=== PATIENT | female | born 1980 | race Caucasian/White ===

== ENCOUNTER 2016-10-24 09:20 | Emergency (ER) | payer BC ==
[2016-10-24 09:38] VITALS: BP 120/67
--- NOTE | 2016-10-24 10:07 | UC ---
Abdominal Pain Female HPI - HPI Summary HPI Summary: 36 female with the acute onset of pelvic pain this AM 11/24 lasted 20 minutes nausea quickly resolved and now at a 1/10 no hx kidney stones or ovarian cysts - History of Current Complaint Chief Complaint: UCAbdominalPain Stated Complaint: LOWER ABD PAIN Time Seen by Provider: 10/24/16 09:39 Hx Obtained From: Patient Hx Last Menstrual Period: 10/12/16 ?: No Onset/Duration: Sudden Onset Timing: Constant Severity Initially: Severe Severity Currently: Mild Pain Intensity: 1 - 8/10 initially Pain Scale Used: 0-10 Numeric Location: Other - right pelvic Radiates: No Character: Cramping Aggravating Factor(s): Nothing Alleviating Factor(s): Spontaneous Resolution Associated Signs and Symptoms: Positive: Nausea Allergies/Adverse Reactions: Allergies Allergy/AdvReac Type Severity Reaction Status Date / Time No Known Allergies Allergy Verified 10/24/16 09:28 Home Medications: Home Medications Control 10/24/16 [History] PMH/Surg Hx/FS Hx/Imm Hx Previously Healthy: Yes - Surgical History Surgical History: None - Family History Known Family History: Positive: Hypertension, Other - mom LUPUS - Social History Alcohol Use: None Substance Use Type: None Smoking Status (MU): Never Smoked Tobacco - Immunization History Most Recent Influenza Vaccination: declined this season Most Recent Tetanus Shot: 03/2014 Most Recent Pneumonia Vaccination: never Review of Systems Constitutional: Negative Skin: Negative Eyes: Negative ENT: Negative Respiratory: Negative Cardiovascular: Negative Gastrointestinal: Abdominal Pain, Nausea Genitourinary: Negative Motor: Negative Neurovascular: Negative Musculoskeletal: Negative Neurological: Negative Psychological: Negative All Other Systems Reviewed And Are Negative: Yes Physical Exam Triage Information Reviewed: Yes Appearance: Well-Appearing, No Pain Distress, Well-Nourished Vital Signs: Initial Vital Signs Temp 98.5 F 10/24/16 09:31 Pulse 72 10/24/16 09:31 Resp 16 10/24/16 09:31 BP 120/67 10/24/16 09:31 Pulse Ox 100 10/24/16 09:31 Eye Exam: Normal ENT: Positive: Hearing grossly normal. Negative: Nasal congestion, Nasal drainage, Tonsillar exudate, Trismus Dental Exam: Normal Neck: Positive: Supple, Nontender, Enlarged Nodes @ - right occipital node Respiratory Exam: Normal Respiratory: Positive: Lungs clear, Normal breath sounds, No respiratory distress, No accessory muscle use Cardiovascular: Positive: RRR, No Murmur Abdomen Description: Positive: Nontender, No Organomegaly, Soft, Other: - ext gent- normal, vagina- thin whitish d/c, cx - no CMT/some inflamation, uterus- normal size and nontender, adenexa- no tender, no mass. Negative: CVA Tenderness (R), CVA Tenderness (L) Musculoskeletal: Positive: ROM Intact, No Edema Neurological: Positive: Alert Psychological Exam: Normal Skin Exam: Normal Abd Pain Female Course/Dx - Differential Dx/Diagnosis Provider Diagnoses: right pelvic pain- suspect Hali Discharge - Discharge Plan Condition: Stable Disposition: HOME Patient Education Materials: Tita (ED), Pelvic Pain in Women (ED) Referrals: No Primary Care Phys,NOPCP [Primary Care Provider] - Additional Instructions: advil or aleve if you need it call me if new symptoms develop ([phone]). I will be here until 2:30 I suspect david recheck tomorrow if not completely better
== END 2016-10-24 10:22 | disposition home or self-care (01) ==
LOC: UCEAST 09:20
DX: R10.2 Pelvic and perineal pain (principal); R11.0 Nausea; Z32.02 Encounter for pregnancy test, result negative
CPT/HCPCS: 81003; 84702; 87480; 87491; 87510; 87591; 87661; 99211; G0463

== ENCOUNTER 2017-06-18 09:27 | Emergency (ER) | payer BC ==
[2017-06-18 09:38] VITALS: BP 123/69
--- NOTE | 2017-06-18 09:42 | UC ---
Throat Pain/Nasal [place] HPI - HPI Summary HPI Summary: Pt presents with sore throat, headache, and tender swollen lymphnodes since yesterday. 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 She has not taken anything OTC for her symptoms. She denies fever, chills, cough, SOB, chest pain, abdominal pain, n/v/d/c. - History of Current Complaint Chief Complaint: UCRespiratory Stated Complaint: SORE THROAT Time Seen by Provider: 06/18/17 09:37 Hx Obtained From: Patient Hx Last Menstrual Period: current Onset/Duration: Sudden Onset Severity: Moderate Pain Intensity: 4 Pain Scale Used: 0-10 Numeric - Allergies/Home Medications Allergies/Adverse Reactions: Allergies Allergy/AdvReac Type Severity Reaction Status Date / Time No Known Allergies Allergy Verified 06/18/17 09:38 Home Medications: Home Medications Ibuprofen TAB* [Motrin TAB* 600 MG] 200 mg PO Q6H PRN 06/18/17 [History Confirmed 06/18/17] PMH/Surg Hx/FS Hx/Imm Hx Previously Healthy: Yes - Surgical History Surgical History: None - Family History Known Family History: Positive: Hypertension, Other - mom LUPUS - Social History Occupation: Employed Full-time Lives: With Family Alcohol Use: Occasionally Alcohol Amount: couple of glasses of wine Substance Use Type: None Smoking Status (MU): Never Smoked Tobacco - Immunization History Most Recent Influenza Vaccination: declined this season Most Recent Tetanus Shot: 03/2014 Most Recent Pneumonia Vaccination: never Review of Systems Constitutional: Negative Skin: Negative Eyes: Negative ENT: Sore Throat Respiratory: Negative Cardiovascular: Negative Musculoskeletal: Negative Neurological: Headache Psychological: Negative All Other Systems Reviewed And Are Negative: Yes Physical Exam - Summary Physical Exam Summary: GENERAL: NAD. WDWN. No pain distress. SKIN: No rashes, sores, ulcers, masses, lesions. No clubbing or cyanosis. HEENT: Head: AT/NC Eyes: Conjunctiva clear without inflammation or discharge. Ears: Hearing grossly normal. TMs intact, no bulging, erythema, or edema. Nose: Nasal mucosa pink and moist. NTTP maxillary and frontal sinus. Throat: Posterior oropharynx moderate erythema and 2+ tonsillar enlargement. No exudates. Uvula midline. No hoarse voice or muffled voice. NECK: Tonsillar adenopathy that is TTP. Supple. CHEST: CTAB. No r/r/w. No accessory muscle use. Breathing comfortably and in no distress. CV: RRR. Without m/r/g. Pulses intact. Brisk cap refill. NEURO: Alert. CN II-XII grossly intact. PSYCH: Age appropriate behavior. Triage Information Reviewed: Yes Vital Signs: Initial Vital Signs Temp 97.8 F 06/18/17 09:33 Pulse 77 06/18/17 09:33 Resp 16 06/18/17 09:33 BP 123/69 06/18/17 09:33 Pulse Ox 100 06/18/17 09:33 Throat Pain/Nasal Course/Dx - Course Course Of Treatment: POC flu negative. POC strep positive. Amoxicillin - Differential Dx/Diagnosis Provider Diagnoses: Strep pharyngitis Discharge - Discharge Plan Condition: Stable Disposition: HOME Prescriptions: Amoxicillin PO (*) [Amoxicillin 500 MG CAP*] 500 mg PO Q12H #20 cap Patient Education Materials: Strep Throat (DC) Forms: *Work Release Referrals: Esau Lucio DO [Primary Care Provider] - Additional Instructions: If you develop a fever, shortness of breath, chest pain, new or worsening symptoms - please call your PCP or go to the ED.
== END 2017-06-18 10:22 | disposition home or self-care (01) ==
LOC: UCEAST 09:27
DX: J02.0 Streptococcal pharyngitis (principal)
CPT/HCPCS: 87502; 87651; 99212; G0463

== ENCOUNTER 2017-07-04 18:42 | Emergency (ER) | payer BC ==
[2017-07-04 19:05] VITALS: BP 115/63
--- NOTE | 2017-07-04 20:45 | UC ---
Caron Zarco Nilda, scribed for Romeo Booth MD on 07/04/17 at 1931 . FLU HPI - HPI Summary HPI Summary: This patient is a 36 year old F presenting to [facility] [place] with a chief complaint of constant flu-like symptoms since this afternoon. The patient rates the pain 7/ 10 in severity. Symptoms aggravated and alleviated by nothing. Patient reports rhinorrhea, body aches, fever, and sore throat. 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 - History of Current Complaint Chief Complaint: UCGeneralIllness Stated Complaint: FLU-LIKE SYMPTOMS Time Seen by Provider: 07/04/17 18:56 Hx Obtained From: Patient Hx Last Menstrual Period: 06/16/17 Onset/Duration: Sudden Onset, Lasting Hours, Still Present Severity Initially: Severe Pain Intensity: 7 Pain Scale Used: 0-10 Numeric Associated Signs & Symptoms: Positive: Fever, Myalgia, Sore Throat Related Hx: Possible Flu/Infectious Exposure - Allergy/Home Medications Allergies/Adverse Reactions: Allergies Allergy/AdvReac Type Severity Reaction Status Date / Time No Known Allergies Allergy Verified 07/04/17 19:05 Home Medications: Home Medications NK [No Home Medications Reported] 07/04/17 [History Confirmed 07/04/17] PMH/Surg Hx/FS Hx/Imm Hx Previously Healthy: Yes - Surgical History Surgical History: None Surgery Procedure, Year, and Place: denies - Family History Known Family History: Positive: Hypertension, Other - mom LUPUS - Social History Occupation: Employed Full-time Alcohol Use: Occasionally Alcohol Amount: couple of glasses of wine Substance Use Type: None Smoking Status (MU): Current Some Day Smoker - Immunization History Most Recent Influenza Vaccination: declined this season Most Recent Tetanus Shot: 03/2014 Most Recent Pneumonia Vaccination: never Review of Systems Constitutional: Fever ENT: Sore Throat, Nasal Discharge Musculoskeletal: Myalgia All Other Systems Reviewed And Are Negative: Yes Physical Exam - Summary Physical Exam Summary: VITAL SIGNS: Reviewed. GENERAL: Patient is a well developed and nourished F who is lying comfortable in the stretcher. Patient is not in any acute respiratory distress. HEAD AND FACE: Normocephalic EYES: PERRLA, EOMI x 2. EARS: Hearing grossly intact. NOSE:runny nose with clear discharge. MOUTH: Oropharynx within normal limits except for pharyngeal erythema NECK: Supple, trachea is midline, no adenopathy, no JVD, no carotid bruit. CHEST: Symmetric, no tenderness at palpation LUNGS: Clear to auscultation bilaterally. No wheezing or crackles. CVS: Regular rate and rhythm, S1 and S2 present, no murmurs or gallops appreciated. ABDOMEN: Soft, non-tender. Bowel sounds are normal. No abdominal abnormal pulsations. EXTREMITIES: Full ROM in all major joints, no edema, no cyanosis or clubbing. NEURO: Alert and oriented x 3. No acute neurological deficits. Speech is normal and follows commands. SKIN: Dry and warm Triage Information Reviewed: Yes Vital Signs: Initial Vital Signs Temp 101.4 F 07/04/17 18:59 Pulse 93 07/04/17 18:59 Resp 16 07/04/17 18:59 BP 115/63 07/04/17 18:59 Pulse Ox 100 07/04/17 18:59 Vital Signs Reviewed: Yes Re-Evaluation - Re-Evaluation First Eval Re-Evaluation Time: 19:34 Comment: Reviewed labs with patient as well as D/C plan. Patient is agreeable to D/C. Flu Course/Dx - Course Course Of Treatment: This patient is a 36 year old F presenting to [facility] [place] with a chief complaint of constant flu-like symptoms since this afternoon. The patient rates the pain 7/10 in severity. Symptoms aggravated and alleviated by nothing. Patient reports rhinorrhea, body aches, fever, and sore throat. 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 Medications reviewed. Allergies reviewed. Influenza A and B are negative. Rapid strep is negative. Patient was D/C with f/u with PCP. I discussed all the findings and test results with the patient. Patient was instructed to return to the urgent care or go to ER immediately if any of the symptoms return or worsens. Plan of care was discussed with the patient, and patient understands and agrees. All questions were answered to patient satisfaction. There were no further complaints or concerns. The patient is hemodynamically stable, alert and oriented x3. - Differential Dx/Diagnosis Provider Diagnoses: viral infection Discharge - Sign-Out/Discharge Documenting (check all that apply): Discharge - Discharge Plan Condition: Stable Disposition: HOME Patient Education Materials: Upper Respiratory Infection (DC) Forms: *Work Release Referrals: Esau Lucio DO [Primary Care Provider] - Additional Instructions: Take Tylenol or ibuprofen for fever or pain Increase your fluid intake Return to the UC if symptoms worsen - Billing Disposition and Condition Condition: STABLE Disposition: HOME The documentation as recorded by the Caron huizar Nilda accurately reflects the service I personally performed and the decisions made by me, Romeo Booth MD.
== END 2017-07-04 19:45 | disposition home or self-care (01) ==
LOC: UCEAST 18:42
DX: B34.9 Viral infection, unspecified (principal); Z72.0 Tobacco use
CPT/HCPCS: 87502; 87651; 99211; G0463

== ENCOUNTER 2018-03-28 19:11 | Inpatient (IN) | payer BC ==
--- NOTE | 2018-03-28 19:55 | HP ---
General Information - Reason for Visit early labor - General Information Maternal Age: 37 Grav: 3 Para: 2 SAB: 0 IEA: 0 Estimated Due Date: 03/23/18 Determined By: LMP Maternal Blood Type and Rh: A Negative - Results this Serology/RPR Result: Non-Reactive Rubella Result: Immune HBsAg Result: Negative HIV Result: Negative GBS Culture Result: Negative Past Medical History Delivery History: Hx Uncomplicated Vaginal Delivery Pertinent Past Medical History: Non-Contributory Pertinent Past Surgical History: None Pertinent Family History: See Records - lupus, diverticulitis Review of Systems Constitutional: Uncomfortable CV Complaint: No Respiratory: Shortness of Breath: No Gastrointestinal: No Nausea/Vomiting, Normal Bowel Movement Genitourinary: No Dysuria, No Bleeding, No Leaking Fluid Musculoskeletal: Contractions Neurological: No Headache, No Visual Changes Movement: Normal Exam Allergies/Adverse Reactions: Allergies No Known Allergies Allergy (Verified 07/04/17 19:05) T: 97.8, P:72, R:20, O2:100 - Measurements Height: 5 ft 4 in Weight: 170 lb Weight in lbs: [id number] Body Mass Index (BMI): 29.2 Pre- Weight: 140 lb 0.002 oz Weight Gained This : 29.999 lbs and 0.014 ozs - Exam Breast: Breast Exam Deferred CVA: No CVA Tenderness Extremities: No Edema Heart: Normal Rhythm/Heart Sounds HEENT: No Significant Findings Lungs: Clear Bilaterally Rectal: Rectal Exam Deferred Reflexes: DTR 2+ Thyroid: No Thyromegaly - Abdominal Exam Abdomen Exam: Non-Tender, Fundal Height Consistent with Dates - Ultrasound/Biophysical Profile Ultrasound Status: Not Done Biophysical Profile: Normal Amniotic Fluid, Normal Gross Body Movements, Normal Muscle Tone, Normal Breathing, Normal Reactive NST Biophysical Total Score (2 points each): 8 - in office today Biophysical Profile - Points Available: 8 Points Targeted Exam Findings Estimated Weight: 9lbs Cervical Exam: 5cm Effacement: 80% Station: -1 Presenting Part: Vertex Membrane Status: AROM Amniotic Fluid Evaluation: Bloody Bleeding/Discharge: Bloody Show EFM Findings - External Monitor Findings Baseline Heart Rate: 140 External Monitor Findings: Accelerations Present, No Pattern of Variable or Late Decelerations, Variability Moderate, Baseline Stable Contractions: Regular, Mild, 45-90 Seconds Contraction Frequency: 2-3 Assessment/Plan - Assessment 37 y.o. , [id number], early labor, AROM - Obstetrical Risk Factors Risk Factors Comment: hx demise - Plan Plan: Admit - Anticipate Vaginal Delivery - Date/Time of Admission Date of Admission: 03/28/18 Time of Admission: 19:50
--- NOTE | 2018-03-28 20:02 | PN ---
Progress Note - Progress Note Date of Service: 03/28/18 Note: Pt reports she feels cold and faint. BP 74/38, IV and fluid bolus started, no bleeding noted, pt reports she had similar reaction to vaginal exam in first . 104/51 on repeat BP.
[2018-03-28] MEDS ORDERED: Oxytocin in LR* 0 UNITS/0 ML BAG IVPB ONE (22:18)
[2018-03-28] MEDS ORDERED: Acetaminophen TAB* 325 MG PO PRN (22:35)
[2018-03-28] MEDS ORDERED: Dibucaine 1% 28.35 GM TUBE PR PRN (22:35)
[2018-03-28] MEDS ORDERED: Glycerin ADULT SUPP PR PRN (22:35)
[2018-03-28] MEDS ORDERED: Witch Hazel PAD* JAR TOPICAL PRN (22:35)
--- NOTE | 2018-03-28 22:35 | PROCNOTE ---
[facility] OB: Delivery Note - Delivery A Date of : 03/28/18 Time of : 22:15 Sex: Female Score 1 Minute: 9 Score 5 Minutes: 9 Gestational Age in Weeks and Days at Delivery: 40 Weeks and 5 Days Delivery Method: Spontaneous Vaginal Labor: Spontaneous Amniotic Fluid: Clear Estimated Blood Loss: 150 Anesthesia/Analgesia: None Delivered By: Angela Harden - Nursery Level of Nursery: Regular/Bedside - Perineum Perineal Injury: Perineal Laceration, 1st Degree Perineal Repair: By Delivering Practioner - Events Delivery Events of Note: Precipitous Delivery
[2018-03-28] MEDS: Ibuprofen TAB* 600 MG PO PRN (23:08)
[2018-03-29] MEDS: Ibuprofen TAB* 600 MG PO PRN ×3 (05:28→18:44)
[2018-03-29] MEDS ORDERED: Simethicone TAB* 80 MG TAB.CHEW PO SCH (08:30)
[2018-03-29 08:34] LABS: ABS Basophils 0 10^3/ul (0-0.2); ABS Eosinophils 0 10^3/ul (0-0.6); ABS Monocytes 0.8 10^3/ul (0-0.8); ABS Nucleated RBC 0 10^3/ul; Eosinophil % 0.1 %; Hematocrit 33 % (35-47); Hemoglobin 10.9 g/dl (12.0-16.0); Lymphocyte % 13.2 %; Mean Corpuscular HGB Conc 33 g/dl (31-36); Mean Corpuscular Hemoglobin 31 pg (27-31); Mean Corpuscular Volume 93 fL (80-97); Mean Platelet Volume 8.5 fL (7.4-10.4); Nucleated Red Blood Cells % 0; Platelet Count 286 10^3/ul (150-450); Red Blood Count 3.52 10^6/ul (4.00-5.40); Red Cell Distribution Width 15 % (10.5-15); White Blood Count 14.8 10^3/ul (3.5-10.8)
[2018-03-29] MEDS: Docusate CAP* 100 MG PO SCH ×2 (08:50→20:40)
[2018-03-29] MEDS ORDERED: Ferrous Gluconate TAB* 324 MG TAB PO SCH (09:00)
[2018-03-30] MEDS: Ibuprofen TAB* 600 MG PO PRN ×2 (00:41→08:58)
[2018-03-30] MEDS: Docusate CAP* 100 MG PO SCH ×2 (00:44→08:58)
[2018-03-30 08:15] VITALS: BP 114/75
== END 2018-03-30 12:53 | disposition home or self-care (01) | DRG 560 ==
LOC: MCHOBOUT 19:11 → MCHOB 19:51
PROVIDERS: ADMIT Midwife; ATTEND Midwife
PROC: 10907ZC Drainage of Amniotic Fluid, Therapeutic from Products of Conception, Via Natural or Artificial Opening (ICD-10-PCS; principal; 2018-03-28)
PROC: 10E0XZZ Delivery of Products of Conception, External Approach (ICD-10-PCS; 2018-03-28)
PROC: 4A1HXCZ Monitoring of Products of Conception, Cardiac Rate, External Approach (ICD-10-PCS; 2018-03-28)
PROC: 0HQ9XZZ Repair Perineum Skin, External Approach (ICD-10-PCS; 2018-03-28)
DX: O48.0 Post-term pregnancy (principal); Z37.0 Single live birth; O70.0 First degree perineal laceration during delivery; O62.3 Precipitate labor; Z3A.40 40 weeks gestation of pregnancy; Z67.11 Type A blood, Rh negative
CPT/HCPCS: 36415; 85025; A9270-GY

== ENCOUNTER 2018-09-30 09:29 | Emergency (ER) | payer BC ==
[2018-09-30 09:50] VITALS: BP 126/75
--- NOTE | 2018-09-30 10:04 | UC ---
Skin Complaint HPI - HPI Summary HPI Summary: patient noted itchy area R forearm 3 days ago, thought they were bug bites, but over past 3 days, she has gotten other rashy areas on R flank, abd and upper leg. has applied hydrocortisone cream to rash with good relief of itch. cannot recall being outside around poison cheryl, has not changed personal care items or had new foods, new meds. Pt is breast feeding daughter - History of Current Complaint Chief Complaint: UCRash Time Seen by Provider: 09/30/18 09:31 Stated Complaint: SKIN RASH Hx Obtained From: Patient Hx Last Menstrual Period: pt had baby in mar ?: No Onset/Duration: Sudden Onset Skin Exposure Onset/Duration: Days Ago Onset Severity: Mild Current Severity: Mild Pain Intensity: 3 Location: Diffuse Character: Pruritus, Redness, Raised Aggravating Factor(s): Touch Alleviating Factor(s): OTC Creams/Salves Associated Signs & Symptoms: Positive: Negative, Tenderness. 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 Negative: Headache Psychological: Positive: Negative Is Patient Immunocompromised?: No Physical Exam Triage Information Reviewed: Yes Appearance: Well-Appearing, No Pain Distress, Well-Nourished Vital Signs: Initial Vital Signs Temp 98.6 F 09/30/18 09:46 Pulse 80 09/30/18 09:46 Resp 14 09/30/18 09:46 BP 126/75 09/30/18 09:46 Pulse Ox 98 09/30/18 09:46 Vital Signs Reviewed: Yes Eye Exam: Normal Eyes: Positive: Conjunctiva Clear Respiratory Exam: Normal Cardiovascular Exam: Normal Neurological Exam: Normal Psychological Exam: Normal Skin: Positive: Rashes - erythemic, raised, pruritic lesions scattered over body , some with small vesicles, some in linear pattern Course/Dx - Differential Diagnoses - Skin Complaint Differential Diagnoses: Contact Dermatitis, Poison Cheryl, Poison [place] - Diagnoses Provider Diagnosis: Poison cheryl dermatitis Discharge - Sign-Out/Discharge Documenting (check all that apply): Patient Departure All imaging exams completed and their final reports reviewed: No Studies - Discharge Plan Condition: Good Disposition: HOME Patient Education Materials: Poison Cheryl (ED) Referrals: Esau Lucio DO [Primary Care Provider] - 2 Days (if no better and to get dermatology referral for chronic eczema) Additional Instructions: use topical beneadryl gel to areas of itchy rash. alternate with hydrocrotisone cream as directed avoid benadryl by mouth while breast feeding since it could dry up your milk. Aveno oatmeal baths may help reduce itch if needed - Billing Disposition and Condition Condition: GOOD Disposition: Home
== END 2018-09-30 10:22 | disposition home or self-care (01) ==
LOC: UCEAST 09:29
DX: L23.7 Allergic contact dermatitis due to plants, except food (principal)
CPT/HCPCS: 99211; G0463